=== PATIENT | female | born 1965 | race Two or more races ===

== ENCOUNTER 2017-06-14 20:00 | Emergency (ER) | payer SELFPAY ==
[~2017-06-14] VITALS: Ht 160 cm; Wt 70.3 kg
[2017-06-14 21:55] VITALS: BP 123/75
[2017-06-14] MEDS ORDERED: HYDROcodone-ACET 10/325MG TAB PO ONE (22:00)
== END 2017-06-14 23:43 | disposition home or self-care (01) ==
LOC: ER 20:00
DX: S13.4XXA Sprain of ligaments of cervical spine, initial encounter (principal); S40.022A Contusion of left upper arm, initial encounter; S20.212A Contusion of left front wall of thorax, initial encounter; V89.2XXA Person injured in unspecified motor-vehicle accident, traffic, initial encounter; Y93.89 Activity, other specified; Y99.8 Other external cause status; Y92.410 Unspecified street and highway as the place of occurrence of the external cause
CPT/HCPCS: 71045; 72125; 73030; 73090